=== PATIENT | male | born 1990 | race Caucasian/White ===

== ENCOUNTER 2022-11-28 10:48 | Emergency (ER) | payer BC, OTHER ==
[~2022-11-28] VITALS: Ht 167.6 cm; Wt 94.2 kg
[2022-11-28 11:15] VITALS: BP 142/84; PULSE 96; RESP 16; O2SAT 97
[2022-11-28] MEDS ORDERED: LIDOCAINE 1% HCL (LOCAL ANESTH.) INJ 20ML MDV IJ ONE (11:15)
== END 2022-11-28 11:44 | disposition home or self-care (01) ==
LOC: ER 10:48
DX: S61.214A Laceration without foreign body of right ring finger without damage to nail, initial encounter (principal); Z90.49 Acquired absence of other specified parts of digestive tract; W45.8XXA Other foreign body or object entering through skin, initial encounter; Y93.89 Activity, other specified; Y92.89 Other specified places as the place of occurrence of the external cause; Y99.8 Other external cause status
CPT/HCPCS: 12001